=== PATIENT | male | born 1985 | race African-American/Black ===

== ENCOUNTER 2016-10-31 00:08 | Emergency (ER) | payer OTHER ==
[~2016-10-31] VITALS: Ht 172.7 cm; Wt 59.0 kg
[2016-10-31 00:12] VITALS: BP 0/0
[2016-10-31] MEDS ORDERED: EPINEPHRINE 0.1MG/ML (1:10,000) 10ML SYR ONE (09:07)
== END 2016-10-31 00:16 | disposition expired ==
LOC: ER 00:09
DX: S51.801A Unspecified open wound of right forearm, initial encounter (principal); S31.000A Unspecified open wound of lower back and pelvis without penetration into retroperitoneum, initial encounter; I46.9 Cardiac arrest, cause unspecified; X93.XXXA Assault by handgun discharge, initial encounter; Y92.89 Other specified places as the place of occurrence of the external cause
CPT/HCPCS: 31500; 36680; 92950; 99285; J0171